=== PATIENT | male | born 1970 | race Caucasian/White ===

== ENCOUNTER 2017-07-23 17:50 | Emergency (ER) | payer SELFPAY ==
[~2017-07-23] VITALS: Ht 162.6 cm; Wt 71.0 kg
[2017-07-23 18:09] VITALS: Ht 162.6 cm; Wt 71.0 kg
== END 2017-07-24 00:02 | disposition left against medical advice (07) ==
LOC: E/R 17:50
DX: Z53.21 Procedure and treatment not carried out due to patient leaving prior to being seen by health care provider (principal)

== ENCOUNTER 2017-09-16 11:17 | Emergency (ER) | payer OTHER ==
[~2017-09-16] VITALS: Ht 162.6 cm; Wt 71.0 kg
[2017-09-16 11:31] VITALS: Ht 162.6 cm; Wt 71.0 kg
[2017-09-16] MEDS ORDERED: HYDROmorphONE 1 MG/ML SYG IV STA (12:58)
[2017-09-16] MEDS ORDERED: ONDANSETRON 4 MG INJ IV STA (12:58)
--- NOTE | 2017-09-16 14:33 | RADRPT ---
PROCEDURE: US LIMITED ABDOMEN RIGHT UPPER QUADRANT CLINICAL INDICATION: Abdominal pain TECHNIQUE: Multiple real-time images were acquired of the patient's right upper quadrant utilizing a high resolution transducer. COMPARISON: No priors for comparison FINDINGS: The pancreas is poorly visualized due to overlying bowel gas. Hepatic morphology is within limits. There is heterogeneous echotexture of the liver. The liver sandy ures 12.5 cm in length. There is normal hepatic pedal flow of the portal vein. The gallbladder is visualized. No evidence of gallstones. No evidence of gallbladder wall thickening . The common bile duct is with normal limits measuring 2.6 mm. The right kidney measures 11.6 cm. The cortex is thin and there is mild increase echotexture of the renal parenchyma. No evidence of obstruction hydronephrosis. IMPRESSION: 1. No evidence of gallstones. Gallbladder and common bile duct are within limits. 2. Fatty liver. 3. Probable mild renal parenchymal disease. No evidence of obstruction or hydronephrosis. 4. Limited evaluation, the pancreas is poorly visualized due to overlying bowel gas. RPTAT: AAPP Physician Mary Date Time Electronically viewed and signed by Physician Mary on 09/16/2017 14:33 ESTELLE/
[2017-09-16] MEDS ORDERED: DICY10CA60 PO (14:46)
[2017-09-16] MEDS ORDERED: HYDR-906 PO (14:46)
--- NOTE | 2017-09-16 14:49 | ERD ---
ER Documentation Chief Complaint Chief Complaint ABD PAIN WITH NAUSEA X 5 DAYS , PAIN GETS WORSE AFTER EATING HPI This is a 47-year-old male diabetic is complaining of right upper quadrant pain an hour and a half after eating. He says he also gets very bloated with a distended stomach and very gassy. He has some nausea but no vomiting no diarrhea no radiation of pain. He has had this for 5 days now. He said he had the same pain about 2 months ago that lasted a week and then resolved on its own. ROS All systems reviewed and are negative except as per history of present illness. Medications Home Meds Active Scripts Hydrocodone/Acetaminophen ([place] 5-325 Tablet) 1 Each Tablet, 1 TAB PO Q6H Y for PAIN, #15 TAB Prov:CHRISTINE JEFFERSON DO 09/16/17 Dicyclomine Hcl* (Bentyl*) 10 Mg Capsule, 20 MG PO QID, #30 CAP Prov:CHRISTINE JEFFERSON DO 09/16/17 PMhx/Soc Medical and Surgical Hx: pt denies Medical Hx, pt denies Surgical Hx Hx Alcohol Use: No Hx Substance Use: No Hx Tobacco Use: No Smoking Status: Never smoker FmHx Family History: No coronary disease Physical Exam Vitals Vital Signs Date Time Temp Pulse Resp B/P Pulse Ox O2 Delivery O2 Flow Rate FiO2 09/16/17 11:31 98.9 108 18 128/86 99 Physical Exam Const: Well-developed, well-nourished Head: Atraumatic, normocephalic Eyes: Normal Conjunctiva, PERRLA, EOMI, normal sclera, no nystagmus ENT: Normal External Ears, Nose and Mouth, moist mucus membranes. Neck: Full range of motion. No meningismus, no lymphadenopathy. Resp: Clear to auscultation bilaterally, no wheezing, rhonchi, rales Cardio: Regular rate and rhythm, no murmurs, S1 S2 present Abd: Soft, epigastric and mild right upper quadrant tenderness, non distended. Normal bowel sounds, no guarding or rebound, no pulsitile abdominal masses or bruits Skin: No petechiae or rashes, no ecchymosis , no maculopapular rash Back: No midline or flank tenderness Ext: No cyanosis, or edema, FROM x 4, normal inspection, neurovascularly intact x 4 Neur: Awake and alert, STR 5/5 x 4, sensation intact x 4, no focal findings, cerebellum intact Psych: Normal Mood and Affect Result Diagram: 09/16/17 1300 09/16/17 1300 Results 24 hrs Laboratory Tests Test 09/16/17 13:00 White Blood Count 4.310^3/ul Red Blood Count 5.5410^6/ul Hemoglobin 16.2g/dl Hematocrit 46.2% Mean Corpuscular Volume 83.4fl Mean Corpuscular Hemoglobin 29.2pg Mean Corpuscular Hemoglobin Concent 35.1g/dl Red Cell Distribution Width 12.3% Platelet Count 38684^3/UL Mean Platelet Volume 9.9fl Neutrophils % 56.1% Lymphocytes % 31.9% Monocytes % 10.6% Eosinophils % 0.7% Basophils % 0.5% Nucleated Red Blood Cells % 0.0/100WBC Neutrophils # 2.410^3/ul Lymphocytes # 1.410^3/ul Monocytes # 0.510^3/ul Eosinophils # 0.010^3/ul Basophils # 0.010^3/ul Nucleated Red Blood Cells # 0.010^3/ul Sodium Level 136mmol/L Potassium Level 4.6mmol/L Chloride Level 99mmol/L Carbon Dioxide Level 25mmol/L Anion Gap 17 Blood Urea Nitrogen 15mg/dl Creatinine 0.65mg/dl Glucose Level 409mg/dl Calcium Level 9.3mg/dl Total Bilirubin 0.4mg/dl Direct Bilirubin 0.00mg/dl Indirect Bilirubin 0.4mg/dl Aspartate Amino Transf (AST/SGOT) 59IU/L Alanine Aminotransferase (ALT/SGPT) 79IU/L Alkaline Phosphatase 190IU/L Total Protein 7.7g/dl Albumin 4.4g/dl Globulin 3.30g/dl Albumin/Globulin Ratio 1.33 Lipase 201U/L Current Medications Medications (Trade) Dose Ordered Sig/[place] Route PRN Reason Start Time Stop Time Status Last Admin Dose Admin Hydromorphone HCl (Dilaudid) 1 mg ONCE STAT IV 09/16/17 12:58 09/16/17 12:59 DC 09/16/17 13:31 Ondansetron HCl (Zofran Inj) 4 mg ONCE STAT IV 09/16/17 12:58 09/16/17 12:59 DC 09/16/17 13:31 Insulin Human Regular (Humulin R) 8 unit ONCE ONCE SC 09/16/17 15:00 09/16/17 15:01 UNV Procedures/MDM PROCEDURE: US LIMITED ABDOMEN RIGHT UPPER QUADRANT CLINICAL INDICATION: Abdominal pain TECHNIQUE: Multiple real-time images were acquired of the patient's right upper quadrant utilizing a high resolution transducer. COMPARISON: No priors for comparison FINDINGS: The pancreas is poorly visualized due to overlying bowel gas. Hepatic morphology is within limits. There is heterogeneous echotexture of the liver. The liver measures 12.5 cm in length. There is normal hepatic pedal flow of the portal vein. The gallbladder is visualized. No evidence of gallstones. No evidence of gallbladder wall thickening. The common bile duct is with normal limits measuring 2.6 mm. The right kidney measures 11.6 cm. The cortex is thin and there is mild increase echotexture of the renal parenchyma. No evidence of obstruction hydronephrosis. IMPRESSION: 1. No evidence of gallstones. Gallbladder and common bile duct are within limits. 2. Fatty liver. 3. Probable mild renal parenchymal disease. No evidence of obstruction or hydronephrosis. 4. Limited evaluation, the pancreas is poorly visualized due to overlying bowel gas. RPTAT: AAPP Physician Mary Date Time Electronically viewed and signed by Physician Mary on 09/16/2017 14:33 JL/ CC: CHRISTINE JEFFERSON DO Patient received some insulin, pain control. The patient has no gallstones but clinically sounds like he has gallbladder dysfunction. Will need a HIDA scan with ejection fraction. He has mild LFT elevations but again no gallstones. Reviewed with him diet care and signs and symptoms to return will try some Bentyl and pain control I recommended some [id number] digestive enzymes Departure Diagnosis: Primary Impression: Abdominal pain Abdominal location: right upper quadrant Qualified Code: R10.11 - Right upper quadrant abdominal pain Condition: Stable Patient Instructions: Abdominal Pain Referrals: NO PRIMARY,CARE PHYSICIAN (PCP) CHRISTINE JEFFERSON DO Sep 16, 2017 14:49
[2017-09-16] MEDS ORDERED: INSULIN REGULAR, HUMAN 100 UNIT/1 ML 3ML VIAL SC ONE (15:00)
[2017-09-16 16:10] VITALS: BP 134/71; PULSE 77; RESP 18
== END 2017-09-16 16:11 | disposition home or self-care (01) ==
LOC: FTE 11:17
DX: R10.11 Right upper quadrant pain (principal); R11.0 Nausea
CPT/HCPCS: 36415; 76705; 80053; 83690; 85025; 96372; 96374; 96375; J1170; J2405; Z7502

== ENCOUNTER 2018-01-31 10:11 | Emergency (ER) | END 2018-01-31 15:10 | disposition home or self-care (01) ==